=== PATIENT | male | born 1930 | race Caucasian/White ===

== ENCOUNTER → 2018-08-05 | Outpatient (CLI) | payer MEDICARE, OTHER ==
[~2018-08-05] MED LIST: AML5 PO; AMYL1TAB PO; BIMA2.5D5 OP; BRI10OD OP; CELE-1 PO; HYDR-2966 PO; HYDR-653 PO; HYDR12.558 PO; IBAN150T6 PO; LEVO50 PO; LOSA50TA74 PO; RABE20TA33 PO; TAM4 PO; TOLT4CAP13 PO
== END ==
LOC: US 08-04 01:05
PROVIDERS: ATTEND Physician Assistant Medical
DX: I35.1 Nonrheumatic aortic (valve) insufficiency (principal)
CPT/HCPCS: 93306

== ENCOUNTER → 2019-02-01 | Outpatient (REF) | payer MEDICARE, OTHER ==
[~2019-02-01] MED LIST changes: +ALEN70TA43 PO; +AMLO-104 PO; +AMLO-125 PO; +AMLO-127 PO; +CA C1TAB9 PO; +CHOL10005 PO; +CHOL100059 PO; +Cpap; +FESO8PT PO; +GABA-547 PO; +GABA-549 PO; +IVER30CR TOP; +LEVO50TA86 PO; +LOSA100T75 PO; -LOSA50TA74 PO; +LOSA50TA80 PO; +METR45CR9 TP; +MOMR ENA; +OCULAR NUTRITION PO; +TADA5TAB7 PO; +TRAZ50TA34 PO
== END ==
LOC: ZZSENDIN 16:24
PROVIDERS: ATTEND Family Medicine
DX: R35.0 Frequency of micturition (principal)
CPT/HCPCS: 81001

== ENCOUNTER → 2019-03-29 | Outpatient (CLI) | payer MEDICARE, OTHER ==
[~2019-03-29] MED LIST changes: -TRAZ50TA34 PO; +TRAZ50TA52 PO
[2019-03-29 17:31] LABS: PLATELET COUNT, AUTOMATED 217 K/uL (150-450)
== END ==
LOC: LAB 17:03
PROVIDERS: ATTEND Family Medicine
DX: R53.83 Other fatigue (principal); R53.1 Weakness; E55.9 Vitamin D deficiency, unspecified
CPT/HCPCS: 36415; 82040; 82247; 82306; 82310; 82374; 82435; 82565; 82607; 82947; 84075; 84132; 84155; 84295; 84443; 84450; 84460; 84520; 85025

== ENCOUNTER → 2019-04-19 | Outpatient (CLI) | payer MEDICARE, OTHER ==
[~2019-04-19] MED LIST changes: +CYA1000 PO; +SERT25TA90 PO
--- NOTE | 2019-04-19 16:11 | RADIOLOGY IMAGING REPORT ---
FAC[place] [facility] [place]IENT NAME: Quique Monzon : 1930 MR: [id number] V: [id number] EXAM DATE: ORDERING PHYSICIAN: SWAPNA MONTIEL TECHNOLOGIST: Location: [facility] Patient: Quique Monzon : 1930 Visit/Account:[id number] Date of Sevice: 04/19/2019 DEXA Scan Clinical history: Osteopenia. Comparison: DEXA scan from 12/09/2016. HIP: Bone mineral density (BMD) measured in the Left femoral neck region correlates with a Z-score -0.9 an d a T-score of -2.8 which is osteoporosis as defined by the World Health Organization. The correspon ding risk of fracture in the hip is high compared with a young adult reference population. This total hip value has decreased by 1.3 % since the prior study. More than 5% change is considered significa nt. Bone mineral density (BMD) measured in the Femoral Neck region measures 0.703 g/cm2. FOREARM: The bone mineral density (BMD) measured in the ULTRADISTAL Left forearm, where trabecular bone predom inates, correlates with a Z-score -1.1 and a T-score of -2.6 which is osteoporosis as defined by the World Health Organization. The corresponding risk of fracture in the distal forearm is high compared with a young adult reference population. This value has decrease by 4.5 % since the prior study. M ore than 5% change is considered significant. The bone mineral density (BMD) in the MIDSHAFT of the forearm, where cortical bone predominates, jarvis elates with a Z-score -0.4 and a T-score of -2.0 which is osteopenia as defined by the World Health O rganization. The corresponding risk of fracture in the midshaft of the forearm is compared with a you ng adult reference population. IMPRESSION: 1. Left Hip: Osteoporosis. There has been decrease in the total hip bone mineral density since the previous exam. 2. Femoral Neck: Bone Mineral Density is 0.703 g/cm2 3. Left Forearm: Osteoporosis. There has been decreased in the bone mineral density since the prev ious exam The next DEXA scan of this patient should include the following sites: L1-L4 and the left forearm. FRAX? WHO Fracture Risk Assessment Tool link: <http://www.shef.ac.uk/FRAX/tool.jsp?locationValue=9> PLEASE NOTE: 1) The World Health Organization defines low BMD as follows: T-score Normal > -1 Osteopenia < -1 and > -2.5 Osteoporosis < -2.5 without fractures Established osteoporosis < -2.5 with fractures 2) In general, you may wish to consider: Diagnosis Treatment Follow-up DEXA Normal BMD Prevention 2-3 years Osteopenia Prevention/therapy 1-2 years Osteoporosis Therapy Yearly 3) Fracture risk estimated from the T-score is more accurate for vertebral fractures (often spontane ous) than for hip fractures. Report Dictated By: Vincent Benton at 04/19/2019 3:41 PM Report E-Signed By: Vincent Benton at 04/19/2019 4:03 PM WSN:[id number]
== END ==
LOC: RAD 00:28
PROVIDERS: ATTEND Family Medicine
DX: M81.0 Age-related osteoporosis without current pathological fracture (principal)
CPT/HCPCS: 77080